=== PATIENT | female | born 1950 | race Caucasian/White ===

== ENCOUNTER → 2017-05-28 | Day surgery (SDC) | payer MEDICARE, OTHER ==
[~2017-05-28] VITALS: Ht 157.5 cm; Wt 76.2 kg
[~2017-05-28] MED LIST: ADVIL200 MG PO; ATIVAN 1 MG1 MG PO; CARAFATE1 GM PO; CYMBALTA30 MG PO; LAMISIL250 MG PO; LEVOTHROID(SYN75 MCG PO; NEURONTIN800 MG PO; PAXIL10 MG PO; PAXIL40 M1 PO; PRAMIPEXOLE0.125 MG PO; PROTONIX40 MG PO; TYLENOL EXTRA500 MG PO
--- NOTE | ~2017-05-28 | OR ---
PATIENT'S NAME: PATRICK CLAROS [facility] AGE: 67 Y [address] ROOM: [place] [id number] LOCATION: [facility] [place] ADMIT DATE: 05/28/2017 OR/Procedure Report DISCHARGE DATE: FAMILY PHYSICIAN: NATHALIE MCKENZIE MD ATTENDING PHYSICIAN: Gail Wei SURGEON: Bronson Edwards MD [employer]: DATE OF PROCEDURE: 05/28/2017 PROCEDURE PERFORMED: L5-S1 interlaminar epidural steroid injection. INDICATION: The patient was referred by Dr. Wei for epidural steroid injection for low back pain, degenerative disk disease with radiculopathy and spondylolisthesis. Risks, benefits, and alternatives were explained to the patient. She wished to proceed. DESCRIPTION OF PROCEDURE: She was taken to the procedure room, placed in prone position. The back was cleaned with Betadine x3 and sterile drape applied over top. Fluoroscopy was used to identify the L5-S1 disk interspace. The skin was numbed with 3 mL of 1% lidocaine. An 18-gauge Tuohy needle was advanced into position using fluoroscopic guidance and loss of resistance technique. Once the needle was felt to be in good position, 2 mL total contrast was injected and confirmed in the AP and lateral views. Showed good epidural spread. No intrathecal uptake and no intravascular uptake. Then, a mixture of 3 mL of 0.25% bupivacaine and 80 mg of Depo-Medrol were injected without complication. Stylette placed and needle withdrawn. Hemostasis was achieved. COMPLICATIONS: None. BLOOD LOSS: None. BRONSON EDWARDS MD JJP/modl /[id number] d: 05/28/172138 t: 05/29/17 1250, OPERATIVE SUMMARY
== END | disposition disaster alternative care site (69) ==
LOC: GPOC 05-22 13:00 → GSDC 12:30
PROC: 3E0R33Z Introduction of Anti-inflammatory into Spinal Canal, Percutaneous Approach (ICD-10-PCS; principal; 2017-05-28)
PROC: 3E0R3BZ Introduction of Anesthetic Agent into Spinal Canal, Percutaneous Approach (ICD-10-PCS; 2017-05-28)
PROC: B01BZZZ Fluoroscopy of Spinal Cord (ICD-10-PCS; 2017-05-28)
DX: M54.5 Low back pain (principal); M51.16 Intervertebral disc disorders with radiculopathy, lumbar region; M43.16 Spondylolisthesis, lumbar region; M48.06 Spinal stenosis, lumbar region; F17.200 Nicotine dependence, unspecified, uncomplicated; F32.9 Major depressive disorder, single episode, unspecified; M79.7 Fibromyalgia; E03.9 Hypothyroidism, unspecified; K21.9 Gastro-esophageal reflux disease without esophagitis; D50.9 Iron deficiency anemia, unspecified; Z88.0 Allergy status to penicillin; Z88.8 Allergy status to other drugs, medicaments and biological substances; Z90.710 Acquired absence of both cervix and uterus; Z98.49 Cataract extraction status, unspecified eye; Z98.51 Tubal ligation status; Z79.899 Other long term (current) drug therapy; Z98.890 Other specified postprocedural states
CPT/HCPCS: J1040